=== PATIENT | female | born 1950 | race Caucasian/White ===

== ENCOUNTER 2017-09-26 14:41 | Emergency (ER) | payer OTHER, MEDICARE, SELFPAY ==
[2017-09-26 14:43] VITALS: BP 217/190; PULSE 99; RESP 25; TEMP 36.6; O2SAT 96; BMI 33.4
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
[2017-09-26] MEDS: Ondansetron 4 MG/2 ML Vial IV (15:21)
[2017-09-26] MEDS: Morphine 4 MG/ML Syringe IV (15:21)
[2017-09-26] MEDS: 0.9% Normal Saline 1,000 ML 999 ML IV (15:21)
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
[2017-09-26 15:25] VITALS: BP 201/146; PULSE 97; RESP 18; O2SAT 95
[2017-09-26 15:30] LABS: Absolute Lymphocyte Count 2.32 X10^3/ul (0.83-4.51); Absolute Neutrophil Count 14.3 X10^3/uL (2.0-7.7); Basophil# 0.02 X10^3/uL; Basophil% 0.1 % (0-1); Eosinophil# 0.17 X10^3/uL; Hematocrit 34.3 % (37-47); Hemoglobin 11.4 g/dl (12.0-15.0); Lymphocyte # 2.32 X10^3/ul (4.0); Mean Corp Hgb Conc 33.2 g/gl (32-36); Mean Corpuscular Hgb 31.8 pg (27.0-32.0); Mean Corpuscular Volume 95.8 fL (81-99); Monocyte# 0.83 X10^3/uL; Monocyte% 4.7 % (0-10); Neutrophil # 14.32 X10^3/uL (2.7-7.7); Neutrophil % 80.2 % (47-70); Platelet Count 367 K/mm3 (150-450); RBC Distribution Width CV 13.9 % (11.6-14.6); RBC Distribution Width SD 46.2 fl (35.1-43.9); Red Blood Count 3.58 M/mm3 (4.2-5.4); White Blood Count 17.8 K/mm3 (4.4-11.0)
[2017-09-26 15:31] LABS: POSITIVE COUNT NO; POSITIVE DIFFERENTIAL NO; POSITIVE MORPHOLOGY NO
[2017-09-26 15:35] VITALS: PULSE 99; RESP 25; O2SAT 96
[2017-09-26 15:46] LABS: AST(SGOT) 38 U/L (15-37); Alanine Aminotransfer ALT/SGPT 23 U/L (13-56); Albumin, Serum 2.7 g/dL (3.2-5.0); Alkaline Phosphatase 79 U/L (45-117); Anion Gap 7 (5-15); BUN 10 mg/dL (7-18); BUN/Creat Ratio 7.7 RATIO (10-20); Bilirubin, Direct 0.14 mg/dL (0.00-0.30); Calcium,Total 7.6 mg/dL (8.5-10.1); Chloride 109 mmol/L (98-107); EST Glomerular Filtration Rate 44 mL/min (>60); Est Glom Filt Rate - Afr Amer 53 mL/min (>60); Estimated Creatinine Clearance 43.52 ml/min; Glucose 120 mg/dL (74-106); Potassium 3.2 mmol/L (3.5-5.1); Protein, Total 5.7 g/dL (6.4-8.2); Sodium Level 141 mmol/L (136-145)
[2017-09-26 15:55] LABS: Bedside Glucose 123 mg/dL (70-110)
[2017-09-26 16:01] VITALS: BP 167/71; PULSE 99
[2017-09-26 16:02] VITALS: BP 167/71; PULSE 99; RESP 18; O2SAT 97
== END 2017-09-26 16:00 | disposition short-term general hospital (02) ==
PROVIDERS: Emergency Provider Emergency Medicine
DX: S12.101A Unspecified nondisplaced fracture of second cervical vertebra, initial encounter for closed fracture (principal); S00.83XA Contusion of other part of head, initial encounter; S40.012A Contusion of left shoulder, initial encounter; R07.9 Chest pain, unspecified; V49.9XXA Car occupant (driver) (passenger) injured in unspecified traffic accident, initial encounter; Y93.9 Activity, unspecified; Y92.9 Unspecified place or not applicable; Y99.9 Unspecified external cause status; I10 Essential (primary) hypertension; E03.9 Hypothyroidism, unspecified; M54.9 Dorsalgia, unspecified; G89.29 Other chronic pain; Z79.899 Other long term (current) drug therapy
CPT/HCPCS: 70450; 71260; 72125; 74177; 80048; 80076; 82962; 85025; 96374; 96375; 99284; Q9967; A4216; J2405